=== PATIENT | female | born 1975 | race Caucasian/White ===

== ENCOUNTER 2021-09-10 14:36 | Emergency (ER) | payer BC ==
[~2021-09-10] VITALS: Ht 175.3 cm; Wt 87.1 kg
[2021-09-10 14:50] VITALS: BP 129/83
--- NOTE | 2021-09-10 14:56 | NUR ---
Patient ambulated with steady gait to bed 5.
[2021-09-10] MEDS ORDERED: NACL 0.9% 1,000 ML IV ONE (15:05)
[2021-09-10 15:19] LABS: BASOPHILS % (AUTO) 0.6 % (0.0-2.0); EOSINOPHILS # (AUTO) 0.1 K/uL (0-0.4); EOSINOPHILS % (AUTO) 2.5 % (0.0-4.0); HEMATOCRIT 32.3 % (36-48); HEMOGLOBIN 10.7 g/dL (12.0-16.0); LYMPHOCYTES % (AUTO) 36.6 % (20.5-51.1); MEAN CORPUSCULAR HEMOGLOBIN 29 pg (27-31); MEAN CORPUSCULAR HGB CONC 33 g/dL (33-37); MEAN CORPUSCULAR VOLUME 87.7 fL (80-94); MONOCYTES # (AUTO) 0.5 K/uL (0.8-1.0); MONOCYTES % (AUTO) 8.2 % (1.7-9.3); NEUTROPHILS # (AUTO) 2.9 K/uL (1.8-7.7); NEUTROPHILS % (AUTO) 52.1 % (42.2-75.2); PLATELET COUNT (AUTO) 348 K/uL (140-450); RED BLOOD CELL COUNT(AUTO) 3.68 MIL/uL (4.20-5.40); RED CELL DISTRIBUTION WIDTH 15.3 % (11.6-13.7); WHITE BLOOD COUNT (AUTO) 5.5 K/uL (4.8-10.8)
[2021-09-10 15:20] LABS: APPEARANCE,URINE CLEAR (CLEAR); BILIRUBIN,URINE NEGATIVE (NEGATIVE); BLOOD, URINE 1+ (NEGATIVE); LEUKOCYTE ESTERASE ,URINE NEGATIVE (NEGATIVE); NITRITE, URINE NEGATIVE (NEGATIVE); UGLUCOSE NEGATIVE (NEGATIVE)
[2021-09-10 15:24] LABS: COLOR,URINE STRAW (YELLOW)
[2021-09-10] MEDS ORDERED: MORPHINE SULFATE 4 MG/ML SYR IM ONE (15:25)
[2021-09-10 15:32] LABS: RBC,URINE 0-5 /HPF (0-5); WBC,URINE 0-5 /HPF (0-5)
[2021-09-10 15:41] LABS: ALBUMIN 3.4 g/dL (3.4-5.0); ANION GAP 8.8 (8-16); CARBON DIOXIDE 28.7 mmol/L (21-32); CREATININE 0.9 mg/dL (0.6-1.3); POTASSIUM 4.5 mmol/L (3.5-5.1); TOTAL BILIRUBIN 0.2 mg/dL (0.0-1.0)
--- NOTE | 2021-09-10 15:53 | NUR ---
46/F PRESENTS TO ED WITH C/O LOWER ABDOMINAL PAIN SINCE THIS MORNING. STATES SHE HAD A LAPRASCOPIC HIATAL HERNIA REPAIR DONE 10 DAYS [place] [facility] [place] STATING SHE WOKE UP TODAY WITH 10/10 SHARP NON RADIATING PAIN. 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
--- NOTE | 2021-09-10 16:48 | NUR ---
PT TAKEN TO CT [facility]IA [facility]
--- NOTE | 2021-09-10 17:00 | NUR ---
PT RETURNED FROM CT VIA [facility]
[2021-09-10] MEDS ORDERED: LORazepam 2 MG/ML VIAL IVP ONE (17:25)
[2021-09-10] MEDS ORDERED: MORPHINE SULFATE 4 MG/ML SYR IVP ONE (17:25)
[2021-09-10] MEDS ORDERED: diphenhydrAMINE 50 MG/ML VIAL ONE (17:48)
[2021-09-10] MEDS ORDERED: diphenhydrAMINE 50 MG/ML VIAL IVP ONE (17:55)
[2021-09-10] MEDS ORDERED: fentaNYL citrate 0.05 MG/ML VIAL IVP ONE ×2 (19:15→21:20)
--- NOTE | 2021-09-10 19:18 | NUR ---
REPORT GIVEN TO CHIO MANZANARES. TRANSFER OF CARE AT THIS TIME
[2021-09-10] MEDS ORDERED: HYDROcodone/APAP 10/325 MG 1 TAB TAB PO ONE (21:20)
[2021-09-10] MEDS ORDERED: HYDR-5080 PO ×2 (21:24→22:07)
[2021-09-10 22:58] VITALS: BP 98/57
--- NOTE | 2021-09-10 22:58 | NUR ---
The patient's care was reviewed and supervised by Jessa Art, RN, RN.
--- NOTE | 2021-09-10 23:02 | NUR ---
Patient discharged with v/s stable. Written and verbal after care instructions given and explained. Patient alert, oriented and verbalized understanding of instructions. Ambulatory with spouse to car. All questions addressed prior to discharge. ID band removed. Patient advised to follow up with PMD. Rx of hydrocodone (sent) given. Patient educated on indication of medication including possible reaction and side effects. Opportunity to ask questions provided and answered.
== END 2021-09-10 23:02 | disposition home or self-care (01) ==
LOC: MED 14:36
DX: G89.18 Other acute postprocedural pain (principal); Z20.822 Contact with and (suspected) exposure to COVID-19; Z98.890 Other specified postprocedural states; Z79.899 Other long term (current) drug therapy
CPT/HCPCS: 36415; 74177; 80053; 81001; 81025; 83690; 84703; 85025; 87426; 96361; 96374; 96375; 96376; 99285; J1200; J2060; J2270; J3010; J7030; Q9967